=== PATIENT | male | born 1990 | race Native Hawaiian/Other Pacific Islander ===

== ENCOUNTER 2021-05-18 11:25 | Emergency (ER) | payer OTHER ==
[~2021-05-18] VITALS: Ht 172.7 cm; Wt 63.0 kg
[2021-05-18 11:25] VITALS: TEMP 98.4
[2021-05-18 12:00] VITALS: BP 117/78
== END 2021-05-18 12:10 ==
LOC: ED 11:25
PROC: 0HQ1XZZ Repair Face Skin, External Approach (ICD-10-PCS; principal; 2021-05-18)
DX: S01.111A Laceration without foreign body of right eyelid and periocular area, initial encounter (principal); W01.198A Fall on same level from slipping, tripping and stumbling with subsequent striking against other object, initial encounter; Y92.149 Unspecified place in prison as the place of occurrence of the external cause
CPT/HCPCS: 99283